=== PATIENT | female | born 1945 | race Caucasian/White ===

== ENCOUNTER 2017-12-16 04:47 | Outpatient (CLI) | payer MEDICARE ==
[~2017-12-16 04:47] MED LIST: AMLO2.5T2 PO; ATOR40TA71 PO; BECL8.7A7 INH; GLIP5TAB13 PO; LEVO500T2 PO; LOSA1TAB41 PO; MECL-111 PO; MONT10TA21 PO; OMEP10CA4 PO; ONDA8TAB6 PO; PRED10TA23 PO
== END 2017-12-16 23:59 | disposition home or self-care (01) ==
LOC: DIABETIC 04:47
PROVIDERS: ATTEND Family Medicine
DX: E11.9 Type 2 diabetes mellitus without complications (principal)
CPT/HCPCS: G0108

== ENCOUNTER 2020-06-15 09:58 | Emergency (ER) | payer MEDICARE, MEDICAID ==
[~2020-06-15] VITALS: Ht 147.3 cm; Wt 60.0 kg
[~2020-06-15 09:58] MED LIST changes: -MECL-111 PO; +MECL-159 PO; -OMEP10CA4 PO; +OMEP10CA5 PO
[2020-06-15 10:04] VITALS: BP 146/66
== END 2020-06-15 10:46 | disposition home or self-care (01) ==
LOC: ER 09:59
DX: S50.311A Abrasion of right elbow, initial encounter (principal); M25.511 Pain in right shoulder; Z79.899 Other long term (current) drug therapy; W17.89XA Other fall from one level to another, initial encounter; Y93.89 Activity, other specified; Y92.89 Other specified places as the place of occurrence of the external cause; Y99.8 Other external cause status
CPT/HCPCS: 73030; 99284

== ENCOUNTER 2023-11-09 14:16 | Emergency (ER) | payer MEDICARE, MEDICAID ==
[~2023-11-09] VITALS: Ht 144.8 cm; Wt 50.9 kg
[~2023-11-09 14:16] MED LIST changes: +ADV50250 INH; -AMLO2.5T2 PO; +APIX5TAB3 PO; -BECL8.7A7 INH; -GLIP5TAB13 PO; -LEVO500T2 PO; -LOSA1TAB41 PO; -MECL-159 PO; +MECL-226 PO; +METF-438 PO; +METO-395 PO; +MONT-47 PO; -MONT10TA21 PO; -ONDA8TAB6 PO; -PRED10TA23 PO; +SITA50TA7 PO
[2023-11-09 16:48] VITALS: BP 154/66; PULSE 69; RESP 18; TEMP 98; O2SAT 96
== END 2023-11-09 16:50 | disposition home or self-care (01) ==
LOC: ER 14:17
DX: S30.0XXA Contusion of lower back and pelvis, initial encounter (principal); S00.03XA Contusion of scalp, initial encounter; Z79.899 Other long term (current) drug therapy; W19.XXXA Unspecified fall, initial encounter; Y93.89 Activity, other specified; Y92.89 Other specified places as the place of occurrence of the external cause; Y99.8 Other external cause status
CPT/HCPCS: 70450; 72100; 99284; A6449